=== PATIENT | female | born 1950 | race Caucasian/White ===

== ENCOUNTER 2021-09-17 00:34 | Inpatient (IN) ==
--- NOTE | 2021-09-17 01:31 | History & Physical Report ---
Date of Service September 17, 2021 Assessment & Plan (1) Bloody stools: Plan: Iona Calhonu is a 71-year-old female with past medical history of diabetes with neuropathy, hyperlipidemia, arthritis who was transferred from [facility] due to GI bleed. Acute GI bleed Patient does report bright red blood per rectum, but does describe some stools that seem darker and she was unable to necessarily describe color As such, unclear whether this is purely a lower GI bleed or if there is potential upper GI involvement Will transfuse 2 units PRBCs due to sudden symptomatic anemia Protonix 40 mg IV twice daily ordered in case of upper GI bleed Patient does have history of hemorrhoids, which could potentially be source of bleeding consult general surgery for evaluation and potential intervention Consult GI Hold aspirin, NSAIDs Admit to telemetry Diabetes with neuropathy Hold home regimen Basal and SSI while admitted Continue home duloxetine and gabapentin Chronic musculoskeletal pain Hold home ibuprofen, meloxicam Can continue Voltaren gel as needed DVT prophylaxis: SCDs, chemoprophylaxis contraindicated in the setting of GI bleed Diet: N.p.o. pending further eval Dispo: Telemetry CODE STATUS: Full (2) Diabetes: (3) Diabetic neuropathy: Plan: Pt seen/examined in conjunction with resident MD Pereira. Orders and plan of admission formulated with resident. 71 y/o F Hx HLD, DM II. She was in the ER the prior day with c/o BRBPR and rectal pain. She was only borderline anemic at the time. A CT abdomen demonstrated proctitis only and she was DCd from the ER in stable condition. She continued to have mild BRBPR. The pt had a L TKR recently and is undergoing rehab. She was with her therapist when she passed out while in the bathroom. She passed a large amount of blood. Her therapist alerted EMS. She was taken to [facility] and then transferred to [facility] as they do not have staffing. She is stable and fully oriented on admission, however, her Hb has decreased form 11.9 to 9. O/E General: AAO x 3, no distress ENT: No erythema or exudates, no thrush Eyes: ALEXANDER, EOMI Head and neck: Normocephalic, atraumatic, No JVD, neck is supple. Chest/heart: Nontender, S1,2, RRR, no murmurs, no gallops Lungs: CTAB, no wheezing or crackles Abdomen: Nontender, nondistended, BS+ Neuro: AAO x 3, speech is clear, no unilateral weakness or loss of sensation, coordination intact Musculoskeletal: No joint inflammation, muscle tenderness, FROM Skin: No acute rashes or ulcers Extremities: No clubbing, cyanosis, edema A/P 1) Acute GI bleed - unclear source as the amount of bleeding seems severe for proctitis or hemorrhoids. We will consult GI. She will remain NPO in the interim. We will transfuse 2 units and trend her Hb. A PPi was provided as the MD at [facility] stated that she had dark, melanotic stool while there. 2) DM - sliding scale 3) HLD - cont statin Total time for this admission including review of labs, meds, imaging, records, discussion with pt and ER attending - 37 min Admission and Anticipated Discharge Date Admission Date: September 17, 2021 History of Present Illness Primary Care Provider: NO PCP Iona Calhoun is a 71-year-old female with past medical history of diabetes with neuropathy, hyperlipidemia, arthritis who was transferred from [facility] due to GI bleed. Patient was in our emergency room on 09/15/2021 for similar complaints. At that time, she had CT abdomen/pelvis showing mild thickening of the rectal wall which is nonspecific, clinical correlation for proctitis recommended. Otherwise no acute abnormality seen. Diverticulosis without evidence of diverticulitis. Hemoglobin was 11.9. At that time she was hemodynamically stable and did not exhibit signs of symptomatic anemia such as dizziness, fatigue, loss of consciousness. She was discharged home and instructed to decrease her aspirin and NSAID use and follow-up with PCP. Patient reports that earlier on 09/16/2021 she did notice more bright red bloody stools and had a significant amount of blood per rectum. Reports she was at home accompanied by her home physical therapist. She felt that she needed to use the bathroom and asked a physical therapist for help, as she recently had left knee replacement. When the physical therapist helped the patient up, she "passed out" as soon as she entered the bathroom and had to be helped down to the ground by the physical therapist. She denies hitting her head, but does say that she lost consciousness for several seconds. At that time, the patient's home physical therapist called EMS and she was transported to [facility] as this was the closest medical facility. At outside hospital, the patient's hemoglobin was found to be 9.2. She was consented for blood transfusion and a unit of PRBCs was started. However, at that time decision was made to transfer her here for specialized care. As such, patient did not receive full unit PRBCs. At this time, patient denies headache, dizziness, nausea, vomiting, fever, chills, chest pain, palpitations, shortness of breath, weakness, numbness. Allergies Allergy/AdvReac Type Severity Reaction Status Date / Time lorazepam [From Ativan] AdvReac Intermediate MAKES HER Verified 09/16/21 07:23 FEEL "WEIRD IN THE HEAD" zolpidem [From Ambien] AdvReac Intermediate MAKES HER Verified 09/16/21 07:23 FEEL "WEIRD IN THE HEAD" Home Medications Medication Instructions Recorded Confirmed Type aspirin 81 mg tablet,delayed 81 mg PO DAILY 09/15/21 09/15/21 History release canagliflozin 300 mg tablet 300 mg PO DAILY 09/15/21 09/15/21 History (Invokana) diclofenac sodium 1 % topical gel 2 g TOPICAL QID PRN 09/15/21 09/15/21 History duloxetine 60 mg capsule,delayed 60 mg PO DAILY 09/15/21 09/15/21 History release gabapentin 600 mg tablet 600 mg PO HS 09/15/21 09/15/21 History ibuprofen 200 mg tablet (Motrin IB) 400 mg PO Q6H PRN 09/15/21 09/15/21 History insulin aspart U-100 100 unit/mL 0 unit SUBCUT AC 09/15/21 09/15/21 History (3 mL) subcutaneous pen (Novolog Flexpen U-100 Insulin aspart) insulin detemir U-100 100 unit/mL 0 unit SUBCUT BID 09/15/21 09/15/21 History (3 mL) subcutaneous pen (Levemir FlexTouch U-100 Insulin) meloxicam 15 mg tablet 15 mg PO DAILY PRN 09/15/21 09/15/21 History ondansetron HCl 4 mg tablet 4 mg PO Q8H PRN 09/15/21 09/15/21 History pravastatin 40 mg tablet 40 mg PO HS 09/15/21 09/15/21 History Past Med/Surg History Social History (System 09/16/21 @ 07:23 by Cristina Carvalho) Smoking Status: Never smoker Hx Alcohol Use: No Hx Substance Use: No Preferred Language: [place] Communication Ability: Effective Edge Stripper Required: No Beliefs That Will Affect Care: None Current Living Situation: Spouse Current Living Situation Comment: is out of town a lot-he is a truck and transport mechanic Feels Safe at Home: Yes Safety Concerns: Feels Safe At This Time Assistive Devices: Glasses Review of Systems Review of Systems: Per HPI Physical Exam Physical Exam: GENERAL: A&Ox3. NAD. HEENT: PERRL, EOMI. Moist mucous membranes. NECK: No JVD. No lymphadenopathy. CHEST/LUNGS: CTAB A/P. No crackles, wheezes, rales, rhonchi. HEART: RRR. No m/g/r. No carotid bruits. ABDOMEN: NT/ND, soft. BS+ x4 EXTREMITIES: No cyanosis, no clubbing, no edema SKIN: Warm and dry. No rashes or lesions. PSYCHIATRIC: Euthymic affect, no SI, no pressured speech, no hallucinations NEUROLOGIC: No FND. CN II-XII grossly intact. Resident Activity Tracking Resident Involvement: Resident Care Provided Care Provided: Adult Hospital Medicine
[2021-09-17] MEDS ORDERED: ONDANSETRON INJ 2 MG/ML 2 ML VIAL IV PRN (01:48)
[2021-09-17] MEDS ORDERED: SODIUM CHLORIDE 0.9% 250 ML IV PRN (01:53)
[2021-09-17 02:26] LABS: Hematocrit (blood only) 27.8 % (37-47); Hemoglobin 9.1 g/dL (12.0-16.0)
[2021-09-17] MEDS ORDERED: GLUCOSE 10 TAB/TUBE PO PRN (02:58)
[2021-09-17] MEDS ORDERED: GLUCAGON FOR INJ 1 MG VIAL SQ PRN (02:58)
[2021-09-17] MEDS ORDERED: DC ALL PREVIOUSLY ORDERED DIABETES MEDS ONE (02:58)
[2021-09-17] MEDS ORDERED: CARBOHYDRATES FOR HYPOGLYCEMIA PO PRN (02:58)
[2021-09-17] MEDS ORDERED: GLUCOSE 40% GEL 15 GM TUBE PO PRN (02:58)
[2021-09-17] MEDS ORDERED: DEXTROSE 50% 50 ML SYRINGE IV PRN (02:58)
[2021-09-17] MEDS: SODIUM CHLORIDE 0.9% 1000ML 1,000 ML IV SCH ×2 (03:00→18:13)
[2021-09-17] MEDS ORDERED: ONDANSETRON 4 MG OD TAB PO PRN (03:12)
[2021-09-17] MEDS: INSULIN ASPART PER UNIT SC SCH ×4 (06:17→20:53)
--- NOTE | 2021-09-17 07:29 | Hospitalist Progress Note ---
Date of Service September 17, 2021 Assessment & Plan (1) Bloody stools: Plan: Iona Calhoun is a 71-year-old female with past medical history of diabetes with neuropathy, hyperlipidemia, arthritis who was transferred from [facility] due to GI bleed. Acute GI bleed Patient does report bright red blood per rectum, but does describe some stools that seem darker and she was unable to necessarily describe color As such, unclear whether this is purely a lower GI bleed or if there is potential upper GI involvement PRBCs x2 units transfused overnight due to sudden symptomatic anemia. Hemoglobin remained stable at 9.4, despite 2 units transfused at 9.1. Protonix 40 mg IV twice daily ordered in case of upper GI bleed General surgery aware of patient, ready to intervene should potential intervention be warranted -Consult GI: Agree with holding aspirin, NSAIDs, IV PPI twice daily. Plan for colonoscopy on outpatient basis, should patient remained stable without further symptoms. If otherwise, likely expedited inpatient colonoscopy. * IV Protonix 40 mg twice daily * Holding aspirin, NSAIDs. * Diet advance to clear liquids * Serial H&H labs until 10 PM * Morning CBC, BMP Diabetes with neuropathy -Held home regimen * Hyperglycemia consult. Basal and SSI while admitted * Continue home duloxetine and gabapentin Chronic musculoskeletal pain * Hold home ibuprofen, meloxicam * Can continue Voltaren gel as needed DVT prophylaxis: SCDs Diet: Liquid diet Dispo: Telemetry CODE STATUS: Full (2) Diabetes: (3) Diabetic neuropathy: Admission and Anticipated Discharge Date Admission Date: September 17, 2021 Supervising Physician Co-Signing Physician Notes Resident Physician Supervision Note: I independently interviewed and examined the patient and verified the white history and physical, reviewed labs and image studies and agree with resident Dr. Stewart findings and care plan. Subjective Patient is awake and alert in bed this morning. She is able to corroborate admission HPI. At present, she reports generalized weakness and fatigue. She also reports longstanding pain in her knee. Otherwise, she denies dizziness, chest pain, shortness of breath, vomiting, or abdominal pain. Review of Systems Review of Systems: All systems reviewed & are unremarkable except as noted in HPI & below Physical Exam Physical Exam: General: Well-appearing, alert, interactive, and in no acute distress. HEENT: Normocephalic, atraumatic. EOM intact. Good conjugate gaze. Nares patent. Moist mucosal membranes. Neck: Supple. No lymphadenopathy. Normal ROM. CV: Regular rate and rhythm. Normal S1 and S2. No murmurs gallops or rubs. No pedal edema. Respiratory: Normal respiratory effort. Lungs clear to auscultation bilaterally. No crackles, rhonchi, or wheezes. Abdomen: Soft, nondistended abdomen. No bruits heard on auscultation. No tenderness to deep palpation. No guarding or rebound. Extremities: Normal tone and ROM. Strength and sensation intact. Capillary refill <2 sec. 2+ dp equal bilaterally. Skin: Intact, without rashes, lesions, or erythema. Results & Data Results & Data ([facility]) Vital Signs (Past 12 Hours) Vital Signs Temp Pulse Pulse Resp BP BP BP 09/17/21 07:01 36.7 C 84 18 112/63 09/17/21 06:14 37 C 89 15 102/61 09/17/21 04:50 37.2 C 92 H 18 113/64 09/17/21 04:20 36.9 C 95 H 18 134/63 09/17/21 04:05 97 H 18 112/55 L 09/17/21 03:45 37.1 C 100 H 16 127/72 09/17/21 03:04 36.5 C 96 H 18 137/73 09/17/21 00:39 37.0 C 94 H 18 102/68 Pulse Ox 09/17/21 07:01 92 09/17/21 06:14 94 09/17/21 04:50 95 09/17/21 04:20 94 09/17/21 04:05 94 09/17/21 03:45 94 09/17/21 03:04 99 09/17/21 00:39 97 Resident Activity Tracking Resident Involvement: Resident Care Provided Care Provided: Adult Hospital Medicine
[2021-09-17 07:51] LABS: Hematocrit (blood only) 27.9 % (37-47); Hemoglobin 9.2 g/dL (12.0-16.0)
[2021-09-17] MEDS: PANTOprazole 40 MG in SYRINGE 0 ML IV SCH ×2 (08:09→20:21)
[2021-09-17] MEDS: LANTUS PER UNIT CHARGE SQ SCH ×2 (08:09→20:52)
[2021-09-17] MEDS: DULoxetine HCL 60 MG CAP PO SCH (08:09)
[2021-09-17] MEDS: ACETAMINOPHEN 325 MG TAB PO PRN ×2 (09:58→19:57)
--- NOTE | 2021-09-17 10:17 | Gastrointestinal Consultation ---
Date of Consultation September 17, 2021 Assessment & Plan (1) Rectal bleed: Patient painless rectal bleeding after having had significant constipation with evidence of proctitis/colitis on imaging. Differential diagnosis for this would include infectious etiologies, stercoral proctitis, no evidence of any ongoing acute GI bleeding. Hemodynamically stable. I would hold meloxicam if possible, no signs of upper GI bleed. Okay to advance diet to liquids Will discuss timing of colonoscopy based upon clinical presentation, assuming patient stays stable without further symptoms, this can be completed as an expedited outpatient otherwise will evaluate for inpatient colonoscopy. BID PPI orally Hold NSAIDs Please call with any questions or concerns or change in status. History of Present Illness Reason for Consultation: Rectal Bleeding Attending Physician: April Conway MD History of Present Illness This is a 71 y/o F Hx HLD, DM II. She presented to ER here at [facility] the prior day with c/o BRBPR and rectal pain. A CT abdomen demonstrated proctitis only and she was DCd from the ER in stable condition. She continued to have mild BRBPR. The pt had a L TKR recently earlier this month and is undergoing rehab. She has had significant constipation with necessity of disimpaction since the surgery followed by diarrhea, and then this episode of bleeding. She was with her therapist when she felt lightheaded while in the bathroom. She passed a large amount of blood. Her therapist alerted EMS. She was taken t [facility] and then transferred to [facility] No BM's since ones at home. Upon presentation here she has remained HD stable, no GI output. Hb stable this morn at 9.2 (drawn prior to transfusion). Upon entering room, she is on phone with daughter in law, she states she feels quite well and is not having any ongoing symptoms. CT 09/15 CT abd pelvis IV con only CLINICAL HISTORY: rectal bleeding TECHNIQUE: Helical axial images of the abdomen and pelvis were obtained and displayed. Automated dose lowering techniques and/or adjustment according to patient size were utilized for this exam. This exam was performed with intravenous contrast. CT DOSE: 839.53 mGycm COMPARISON: None available at the time of this dictation. FINDINGS: Lower chest: Bibasilar atelectasis versus scarring is seen. Liver: Unremarkable. No focal lesions are seen. Gallbladder and biliary tree: The gallbladder is distended appearance of there is no evidence of wall thickening. The common bile duct measures 7 mm, within normal limits for age. Pancreas: Unremarkable, no focal lesions. Spleen: Splenule is incidentally noted. Adrenals: Unremarkable. Kidneys and ureters: Subcentimeter hypodensities are too small to characterize. Bladder: Unremarkable. Reproductive organs: Unremarkable. Bowel: Diverticulosis is seen without evidence of diverticulitis. The appendix is normal. There is appearance of thickening of the lower rectal wall. No definite drainable abscess is seen within the limits of CT imaging. Lymph nodes Retroperitoneal: Unremarkable. Mesenteric: Unremarkable. Pelvic: Unremarkable. Peritoneum: Normal. Vessels: Atherosclerotic calcifications are seen. Abdominal wall: Mild skin thickening and edema in the lower abdomen bilaterally, nonspecific. Bones: Degenerative changes in the visualized spine. IMPRESSION: 1. There is mild thickening of the rectal wall which is nonspecific, clinical correlation for proctitis is recommended. Otherwise no acute abnormalities are seen. 2. Diverticulosis without evidence of diverticulitis. Allergies Allergy/AdvReac Type Severity Reaction Status Date / Time lorazepam [From Ativan] AdvReac Intermediate MAKES HER Verified 09/16/21 07:23 FEEL "WEIRD IN THE HEAD" zolpidem [From Ambien] AdvReac Intermediate MAKES HER Verified 09/16/21 07:23 FEEL "WEIRD IN THE HEAD" Home Medications Medication Instructions Recorded Confirmed Type aspirin 81 mg tablet,delayed 81 mg PO DAILY 09/15/21 09/15/21 History release canagliflozin 300 mg tablet 300 mg PO DAILY 09/15/21 09/15/21 History (Invokana) diclofenac sodium 1 % topical gel 2 g TOPICAL QID PRN 09/15/21 09/15/21 History duloxetine 60 mg capsule,delayed 60 mg PO DAILY 09/15/21 09/15/21 History release gabapentin 600 mg tablet 600 mg PO HS 09/15/21 09/15/21 History ibuprofen 200 mg tablet (Motrin IB) 400 mg PO Q6H PRN 09/15/21 09/15/21 History insulin aspart U-100 100 unit/mL 0 unit SUBCUT AC 09/15/21 09/15/21 History (3 mL) subcutaneous pen (Novolog Flexpen U-100 Insulin aspart) insulin detemir U-100 100 unit/mL 0 unit SUBCUT BID 09/15/21 09/15/21 History (3 mL) subcutaneous pen (Levemir FlexTouch U-100 Insulin) meloxicam 15 mg tablet 15 mg PO DAILY PRN 09/15/21 09/15/21 History ondansetron HCl 4 mg tablet 4 mg PO Q8H PRN 09/15/21 09/15/21 History pravastatin 40 mg tablet 40 mg PO HS 09/15/21 09/15/21 History Patient History Social History Smoking Status: Never smoker Hx Alcohol Use: No Hx Substance Use: No Preferred Language: Greek Communication Ability: Effective Deoiling Machine Operator Required: No Beliefs That Will Affect Care: None Current Living Situation: Spouse Current Living Situation Comment: is out of town a lot-he is a truck terminal manager Feels Safe at Home: Yes Safety Concerns: Feels Safe At This Time Assistive Devices: Glasses Review of Systems Review of Systems: 10 system negative except for HPI Physical Exam Physical Exam: GENERAL: A&Ox3. NAD. HEENT: PERRL, EOMI. Moist mucous membranes. NECK: No JVD. No lymphadenopathy. CHEST/LUNGS: CTAB A/P. No crackles, wheezes, rales, rhonchi. HEART: RRR. No m/g/r. No carotid bruits. ABDOMEN: NT/ND, soft. BS+ x4 EXTREMITIES: No cyanosis, no clubbing, no edema SKIN: Warm and dry. No rashes or lesions. PSYCHIATRIC: Euthymic affect, no SI, no pressured speech, no hallucinations NEUROLOGIC: No FND. CN II-XII grossly intact. Results & Data ([facility]) Vital Signs (Past 12 Hours) Vital Signs Temp Pulse Pulse Resp BP BP BP 09/17/21 09:52 37.5 C 83 18 107/61 09/17/21 09:37 37.3 C 85 18 102/58 L 09/17/21 09:08 36.8 C 85 18 102/59 L 09/17/21 07:01 36.7 C 84 18 112/63 09/17/21 06:45 89 09/17/21 06:14 37 C 89 15 102/61 09/17/21 04:50 37.2 C 92 H 18 113/64 09/17/21 04:20 36.9 C 95 H 18 134/63 09/17/21 04:05 97 H 18 112/55 L 09/17/21 03:45 37.1 C 100 H 16 127/72 09/17/21 03:04 36.5 C 96 H 18 137/73 09/17/21 00:39 37.0 C 94 H 18 102/68 Pulse Ox 09/17/21 09:52 95 09/17/21 09:37 95 09/17/21 09:08 92 09/17/21 07:01 92 09/17/21 06:45 09/17/21 06:14 94 09/17/21 04:50 95 09/17/21 04:20 94 09/17/21 04:05 94 09/17/21 03:45 94 09/17/21 03:04 99 09/17/21 00:39 97
[2021-09-17 13:10] LABS: Hematocrit (blood only) 27.8 % (37-47); Hemoglobin 9.1 g/dL (12.0-16.0)
[2021-09-17 14:51] LABS: Hematocrit (blood only) 28.6 % (37-47); Hemoglobin 9.4 g/dL (12.0-16.0)
[2021-09-17] MEDS: DICLOFENAC SOD 1% GEL 100 GM TUBE EXT PRN ×2 (17:29→20:26)
[2021-09-17 19:29] LABS: Hematocrit (blood only) 28.5 % (37-47); Hemoglobin 9.2 g/dL (12.0-16.0)
[2021-09-17] MEDS: GABAPENTIN 600 MG TAB PO SCH (20:21)
[2021-09-17] MEDS: PRAVASTATIN SOD 40 MG TAB PO SCH (20:22)
[2021-09-17 22:47] LABS: Hematocrit (blood only) 27.8 % (37-47); Hemoglobin 9.2 g/dL (12.0-16.0)
[2021-09-18] MEDS: SODIUM CHLORIDE 0.9% 1000ML 1,000 ML IV SCH (04:16)
[2021-09-18] MEDS ORDERED: Nursing to Pharmacy Communication SCH (07:30)
--- NOTE | 2021-09-18 07:37 | Discharge Summary ---
Date of Service September 18, 2021 Admission HPI Per Admitting Provider Iona Calhoun is a 71-year-old female with past medical history of diabetes with neuropathy, hyperlipidemia, arthritis who was transferred from [facility] due to GI bleed. Patient was in our emergency room on 09/15/2021 for similar complaints. At that time, she had CT abdomen/pelvis showing mild thickening of the rectal wall which is nonspecific, clinical correlation for proctitis recommended. Otherwise no acute abnormality seen. Diverticulosis without evidence of diverticulitis. Hemoglobin was 11.9. At that time she was hemodynamically stable and did not exhibit signs of symptomatic anemia such as dizziness, fatigue, loss of consciousness. She was discharged home and instructed to decrease her aspirin and NSAID use and follow-up with PCP. Patient reports that earlier on 09/16/2021 she did notice more bright red bloody stools and had a significant amount of blood per rectum. Reports she was at home accompanied by her home physical therapist. She felt that she needed to use the bathroom and asked a physical therapist for help, as she recently had left knee replacement. When the physical therapist helped the patient up, she "passed out" as soon as she entered the bathroom and had to be helped down to the ground by the physical therapist. She denies hitting her head, but does say that she lost consciousness for several seconds. At that time, the patient's home physical therapist called EMS and she was transported to [facility] as this was the closest medical facility. At outside hospital, the patient's hemoglobin was found to be 9.2. She was consented for blood transfusion and a unit of PRBCs was started. However, at that time decision was made to transfer her here for specialized care. As such, patient did not receive full unit PRBCs. At this time, patient denies headache, dizziness, nausea, vomiting, fever, chills, chest pain, palpitations, shortness of breath, weakness, numbness. Discharge Data Allergies Allergy/AdvReac Type Severity Reaction Status Date / Time lorazepam [From Ativan] AdvReac Intermediate MAKES HER Verified 09/16/21 07:23 FEEL "WEIRD IN THE HEAD" zolpidem [From Ambien] AdvReac Intermediate MAKES HER Verified 09/16/21 07:23 FEEL "WEIRD IN THE HEAD" Consultations 09/17/21 01:48 Consult Gastroenterology Routine Hospital Course (1) Bloody stools: Iona Calhoun is a 71-year-old female with past medical history of diabetes with neuropathy, hyperlipidemia, arthritis who was transferred from [facility] due to GI bleed. Acute GI bleed Patient does report bright red blood per rectum, but does describe some stools that seem darker and she was unable to necessarily describe color As such, unclear whether this is purely a lower GI bleed or if there is pote ntial upper GI involvement PRBCs x2 units transfused overnight due to sudden symptomatic anemia. Hemoglobin remained stable at 9.4, despite 2 units transfused at 9.1. Protonix 40 mg IV twice daily ordered in case of upper GI bleed General surgery aware of patient, ready to intervene should potential intervention be warranted -Consult GI: Agree with holding aspirin, NSAIDs, IV PPI twice daily. Plan for colonoscopy on outpatient basis, should patient remained stable without further symptoms. If otherwise, likely expedited inpatient colonoscopy. * IV Protonix 40 mg twice daily * Holding aspirin, NSAIDs. * Diet advance to clear liquids * Serial H&H labs until 10 PM * Morning CBC, BMP Diabetes with neuropathy -Held home regimen * Hyperglycemia consult. Basal and SSI while admitted * Continue home duloxetine and gabapentin Chronic musculoskeletal pain * Hold home ibuprofen, meloxicam * Can continue Voltaren gel as needed DVT prophylaxis: SCDs Diet: Liquid diet Dispo: Telemetry CODE STATUS: Full Discharge Plan Discharge Items Reason For Visit: GI BLEED Follow-up/Referrals: PCP,NO [Primary Care Provider] - Medications and DC Order Prescriptions: No Action gabapentin 600 mg tablet 600 mg PO HS RF: 0 pravastatin 40 mg tablet 40 mg PO HS RF: 0 meloxicam 15 mg tablet 15 mg PO DAILY PRN (Reason: Pain) RF: 0 ondansetron HCl 4 mg tablet 4 mg PO Q8H PRN (Reason: NAUSEA/VOMITING) RF: 0 aspirin 81 mg tablet,delayed release (DR/EC) 81 mg PO DAILY RF: 0 ibuprofen [Motrin IB] 200 mg Tablet 400 mg PO Q6H PRN (Reason: Pain) RF: 0 insulin aspart U-100 [Novolog Flexpen U-100 Insulin] 100 unit/mL (3 mL) insulin pen 0 unit SUBCUT AC RF: 0 duloxetine 60 mg capsule,delayed release(DR/EC) 60 mg PO DAILY RF: 0 Levemir FlexTouch U-100 Insuln 100 unit/mL (3 mL) insulin pen 0 unit SUBCUT BID RF: 0 diclofenac sodium [Voltaren] 1 % Gel 2 g TOPICAL QID PRN (Reason: Pain) RF: 0 Invokana 300 mg tablet 300 mg PO DAILY RF: 0 Admission Data Admit Date/Time: 09/17/21 00:50 Attending Provider: April Conway Admit Provider: Denys Pereira Primary Care Provider: PCP,NO Other Providers: Winston Abebe ; Ahsan Roberts
[2021-09-18 07:56] LABS: Basophils # (auto) 0.02 K/uL (0-0.2); Basophils % (auto) 0.2 %; Eosinophils # (auto) 0.45 K/uL (0-0.5); Eosinophils % (auto) 5.5 %; Hematocrit (blood only) 30.3 % (37-47); Hemoglobin 9.7 g/dL (12.0-16.0); Immature Granulocytes % (auto) 1.2 %; Lymphocytes # (auto) 1.81 K/uL (1.2-3.4); Lymphocytes % (auto) 22.2 %; Mean Corpuscular Hemoglobin 27.3 pg (25-34); Mean Corpuscular Volume 85.4 fL (80-100); Mean Platelet Volume 9.5 fL (7.4-10.4); Monocytes % (auto) 7.4 %; Neutrophils # (auto) 5.16 K/uL (1.4-6.5); Neutrophils % (auto) 63.5 %; Platelet Count 199 K/uL (130-400); RDW Coefficient of Variation 15.5 % (11.5-14.5); Red Blood Count 3.55 M/uL (4.2-5.4); White Blood Count 8.14 K/uL (4.8-10.8)
[2021-09-18 08:11] LABS: BUN Creatinine Ratio 20.8 (10-20); Creatinine Clr Calc Pharmacy 99.6 ml/min; Est GFR (African American) 113.6 ml/min; Potassium 3.9 mmol/L (3.5-5.1)
[2021-09-18] MEDS: INSULIN ASPART PER UNIT SC SCH ×4 (08:39→20:36)
[2021-09-18] MEDS: LANTUS PER UNIT CHARGE SQ SCH ×2 (09:08→20:36)
[2021-09-18] MEDS: DULoxetine HCL 60 MG CAP PO SCH (09:09)
[2021-09-18] MEDS: PANTOprazole 40 MG in SYRINGE 0 ML IV SCH (09:10)
--- NOTE | 2021-09-18 12:13 | Gastroenterology Progress Note ---
Date of Service September 18, 2021 Assessment & Plan (1) Rectal bleed: Plan: Patient painless rectal bleeding after having had significant constipation with evidence of proctitis/colitis on imaging. Differential diagnosis for this would include infectious etiologies, stercoral proctitis, no evidence of any ongoing acute GI bleeding. Hemodynamically stable. I would hold meloxicam if possible, no signs of upper GI bleed. Okay to advance diet to liquids Would arrange for colonoscopy in 4 to 6 weeks as an outpatient. Avoid constipation mainly daily MiraLAX of 1 scoop BID PPI orally Hold NSAIDs Please call with any questions or concerns or change in status. Admission and Anticipated Discharge Date Admission Date: September 17, 2021 Subjective Patient feels well, having no pain, no further brown bowel movement today. Physical Exam Physical Exam: GENERAL: A&Ox3. NAD. HEENT: PERRL, EOMI. Moist mucous membranes. NECK: No JVD. No lymphadenopathy. CHEST/LUNGS: CTAB A/P. No crackles, wheezes, rales, rhonchi. HEART: RRR. No m/g/r. No carotid bruits. ABDOMEN: NT/ND, soft. BS+ x4 EXTREMITIES: No cyanosis, no clubbing, no edema SKIN: Warm and dry. No rashes or lesions. PSYCHIATRIC: Euthymic affect, no SI, no pressured speech, no hallucinations NEUROLOGIC: No FND. CN II-XII grossly intact. Results & Data ([facility]) Vital Signs (Past 12 Hours) Vital Signs Temp Pulse Pulse Pulse Resp BP BP 09/18/21 11:15 37.0 C 83 18 117/66 09/18/21 07:42 85 09/18/21 07:41 36.9 C 82 19 120/70 09/18/21 03:43 36.7 C 78 16 122/63 Pulse Ox 09/18/21 11:15 96 09/18/21 07:42 09/18/21 07:41 96 09/18/21 03:43 95
--- NOTE | 2021-09-18 14:01 | Hospitalist Progress Note ---
Date of Service September 18, 2021 Assessment & Plan (1) Bloody stools: Plan: Iona Calhoun is a 71-year-old female with past medical history of diabetes with neuropathy, hyperlipidemia, arthritis who was transferred from [facility] due to GI bleed. Acute GI bleed Patient does report bright red blood per rectum, but does describe some stools that seem darker and she was unable to necessarily describe color PRBCs x2 on admission. Hemoglobin remained stable at 9.4, despite 2 units transfused at 9.1. Hemoglobin 9.7 this morning. Protonix now p.o. twice daily. GI: Agree with holding aspirin, NSAIDs, PPI twice daily. GI scheduling patient for colonoscopy outpatient in 4 to 6 weeks. * Advancing diet to carb consistent * Starting on daily MiraLAX * Follow morning CBC Diabetes with neuropathy -Held home regimen * Hyperglycemia consult. Basal and SSI while admitted * Continue home duloxetine and gabapentin Chronic musculoskeletal pain * Hold home ibuprofen, meloxicam * Can continue Voltaren gel as needed DVT prophylaxis: SCDs Diet: Carb consistent Dispo: Telemetry. case management working on short-term [facility] options. CODE STATUS: Full (2) Diabetes: (3) Diabetic neuropathy: Admission and Anticipated Discharge Date Admission Date: September 17, 2021 Supervising Physician Co-Signing Physician Notes Resident Physician Supervision Note: I independently interviewed and examined the patient and verified the white history and physical, reviewed labs and image studies and agree with resident Dr. Stewart findings and care plan. Subjective Patient is awake in bed this morning. She reports having a bowel movement this morning, which was nonbloody. She has no acute concerns. However, she is understandably nervous about the prospect of going home alone and having the same thing happen to her. When discussing this, she becomes tearful. She mentions that her , who would ordinarily be with her, is stuck in [place]-he drives a truck. Review of Systems Review of Systems: All systems reviewed & are unremarkable except as noted in HPI & below Physical Exam Physical Exam: General: Well-appearing, alert, interactive, and in no acute distress. HEENT: Normocephalic, atraumatic. EOM intact. Good conjugate gaze. Nares patent. Moist mucosal membranes. Neck: Supple. No lymphadenopathy. Normal ROM. CV: Regular rate and rhythm. Normal S1 and S2. No murmurs gallops or rubs. No pedal edema. Respiratory: Normal respiratory effort. Lungs clear to auscultation bilaterally. No crackles, rhonchi, or wheezes. Abdomen: Soft, nondistended abdomen. No bruits heard on auscultation. No tenderness to deep palpation. No guarding or rebound. Extremities: Normal tone and ROM. Strength and sensation intact. Capillary refill <2 sec. 2+ dp equal bilaterally. Skin: Intact, without rashes, lesions, or erythema. Results & Data Results & Data ([facility]) Vital Signs (Past 12 Hours) Vital Signs Temp Pulse Pulse Pulse Resp BP BP 09/18/21 11:15 37.0 C 83 18 117/66 09/18/21 07:42 85 09/18/21 07:41 36.9 C 82 19 120/70 09/18/21 03:43 36.7 C 78 16 122/63 Pulse Ox 09/18/21 11:15 96 09/18/21 07:42 09/18/21 07:41 96 09/18/21 03:43 95 Resident Activity Tracking Resident Involvement: Resident Care Provided Care Provided: Adult Hospital Medicine
[2021-09-18] MEDS: DICLOFENAC SOD 1% GEL 100 GM TUBE EXT PRN (19:17)
[2021-09-18] MEDS: ACETAMINOPHEN 325 MG TAB PO PRN (20:12)
[2021-09-18] MEDS: PRAVASTATIN SOD 40 MG TAB PO SCH (20:13)
[2021-09-18] MEDS: PANTOprazole 40 MG TAB PO SCH (20:13)
[2021-09-18] MEDS: GABAPENTIN 600 MG TAB PO SCH (20:13)
--- NOTE | 2021-09-19 06:55 | Hospitalist Progress Note ---
Date of Service September 19, 2021 Assessment & Plan (1) Bloody stools: Plan: Iona Calhoun is a 71-year-old female with past medical history of diabetes with neuropathy, hyperlipidemia, arthritis who was transferred from [facility] due to GI bleed. Acute GI bleed Upon admission patient reported bright red blood per rectum, but does describe some stools that seem darker and she was unable to necessarily describe color PRBCs x2 on admission. Hemoglobin remained stable at 9.4, despite 2 units transfused at 9.1. Hemoglobin 9.7 on 09/18. Protonix now p.o. twice daily. GI: Agree with holding aspirin, NSAIDs, PPI twice daily. GI scheduling patient for colonoscopy outpatient in 4 to 6 weeks. -Advancing diet to carb consistent -Started on daily MiraLAX -Follow morning CBC Diabetes with neuropathy -Held home regimen -Hyperglycemia consult. Basal and SSI while admitted -Continue home duloxetine and gabapentin Chronic musculoskeletal pain -Hold home ibuprofen, meloxicam -Can continue Voltaren gel as needed DVT prophylaxis: SCDs Diet: Carb consistent Dispo: Med/Surg. case management working on short-term [facility] options. CODE STATUS: Full (2) Diabetes: (3) Diabetic neuropathy: Admission and Anticipated Discharge Date Admission Date: September 17, 2021 Supervising Physician Co-Signing Physician Notes I personally examined the patient and verified all white points of history and exam, discussed case, and agree with decision making with Dr Wilson No further rectal bleeding. Feels good. Just scared about going home alone given that she was having syncope. Vitals noted, in general she is awake and alert pleasant no distress. HEENT normocephalic atraumatic mucous membranes moist. Breathing unlabored no accessory muscle use good effort. Skin shows no rashes no pallor or icterus. Neuro without focal deficits. Rectal bleeding/acute blood loss anemiaanemia is now stable for days, no further bleeding for days, vitals are stableonce she has a safe living situation, stable for home. Otherwise as above Subjective Patient seen at the bedside today sitting in her chair by the bed. She does not have any complaints of nausea, vomiting, fevers, chills, abdominal pain. She had a bowel movement earlier in the morning and said that she did not have much issue with it and did not notice any blood. Review of Systems Constitutional: as per Subjective / HPI Physical Exam Constitutional: WD/WN, vitals as above Eyes: PERRL, conjunctivae normal, anicteric sclerae Respiratory: normal respiratory effort, lungs clear to auscultation Cardiovascular: RRR, no murmur, no edema Gastrointestinal (Abdomen): normal bowel sounds, soft, nontender, no hepatosplenomegaly Psychiatric: A+Ox3, euthymic affect Results & Data Results & Data ([facility]) Vital Signs (Past 12 Hours) Vital Signs Temp Pulse Pulse Resp BP BP Pulse Ox 09/19/21 03:42 36.6 C 76 16 96/56 L 98 09/18/21 22:49 101 H 09/18/21 22:48 37.0 C 88 17 122/72 98 09/18/21 19:36 36.3 C L 86 18 105/60 95 Resident Activity Tracking Resident Involvement: Resident Care Provided Care Provided: Adult Hospital Medicine
[2021-09-19] MEDS: INSULIN ASPART PER UNIT SC SCH ×4 (07:39→20:59)
[2021-09-19] MEDS: DULoxetine HCL 60 MG CAP PO SCH (08:23)
[2021-09-19] MEDS: PANTOprazole 40 MG TAB PO SCH ×2 (08:23→21:11)
[2021-09-19] MEDS: POLYETHYLENE (MIRALAX) 17 GM PACK PO SCH (08:25)
[2021-09-19] MEDS: LANTUS PER UNIT CHARGE SQ SCH ×2 (08:42→21:00)
--- NOTE | 2021-09-19 13:14 | Gastroenterology Progress Note ---
Date of Service September 19, 2021 Assessment & Plan (1) Rectal bleed: Plan: Patient painless rectal bleeding after having had significant constipation with evidence of proctitis/colitis on imaging. Differential diagnosis for this would include infectious etiologies, But most likelystercoral proctitis, no evidence of any ongoing acute GI bleeding. Hemodynamically stable. I would hold meloxicam if possible, no signs of upper GI bleed. Okay to advance diet to liquids Would arrange for colonoscopy in 4 to 6 weeks as an outpatient. Avoid constipation mainly daily MiraLAX of 1 scoop BID PPI orally Hold NSAIDs GI will sign off Please call with any questions or concerns or change in status. Admission and Anticipated Discharge Date Admission Date: September 17, 2021 Subjective no signs GI output concern for bleeding, small brown stool. Physical Exam Physical Exam: General: Well-appearing, alert, interactive, and in no acute distress. HEENT: Normocephalic, atraumatic. EOM intact. Good conjugate gaze. Nares patent. Moist mucosal membranes. Neck: Supple. No lymphadenopathy. Normal ROM. CV: Regular rate and rhythm. Normal S1 and S2. No murmurs gallops or rubs. No pedal edema. Respiratory: Normal respiratory effort. Lungs clear to auscultation bilaterally. No crackles, rhonchi, or wheezes. Abdomen: Soft, nondistended abdomen. No bruits heard on auscultation. No tenderness to deep palpation. No guarding or rebound. Extremities: Normal tone and ROM. Strength and sensation intact. Capillary refill <2 sec. 2+ dp equal bilaterally. Skin: Intact, without rashes, lesions, or erythema. Results & Data ([facility]) Vital Signs (Past 12 Hours) Vital Signs Temp Pulse Pulse Resp BP BP Pulse Ox 09/19/21 11:15 36.9 C 90 18 114/49 L 96 09/19/21 07:34 36.9 C 83 18 128/80 96 09/19/21 07:01 77 09/19/21 03:42 36.6 C 76 16 96/56 L 98
--- NOTE | 2021-09-19 17:36 | Billing Data ---
Date of Service September 19, 2021 Coding Level of Care Code 56009 Subseq Hosp Care Lvl 2
[2021-09-19] MEDS: ACETAMINOPHEN 325 MG TAB PO PRN (21:08)
[2021-09-19] MEDS: DICLOFENAC SOD 1% GEL 100 GM TUBE EXT PRN (21:10)
[2021-09-19] MEDS: GABAPENTIN 600 MG TAB PO SCH (21:10)
[2021-09-19] MEDS: PRAVASTATIN SOD 40 MG TAB PO SCH (21:10)
[2021-09-20] MEDS: PANTOprazole 40 MG TAB PO SCH (07:33)
[2021-09-20] MEDS: DULoxetine HCL 60 MG CAP PO SCH (07:33)
[2021-09-20] MEDS: POLYETHYLENE (MIRALAX) 17 GM PACK PO SCH (07:36)
[2021-09-20] MEDS: INSULIN ASPART PER UNIT SC SCH ×2 (08:27→12:45)
[2021-09-20] MEDS: LANTUS PER UNIT CHARGE SQ SCH (08:28)
--- NOTE | 2021-09-20 19:02 | Discharge Summary ---
Date of Service September 20, 2021 Principal Diagnosis Lower GI bleed Discharge Exam In general she is awake and alert pleasant no distress. HEENT normocephalic atraumatic mucous membranes moist. Breathing unlabored no accessory muscle use good effort. Skin shows no rashes no pallor or icterus. Neuro without focal deficits. Discharge Data Allergies Allergy/AdvReac Type Severity Reaction Status Date / Time lorazepam [From Ativan] AdvReac Intermediate MAKES HER Verified 09/16/21 07:23 FEEL "WEIRD IN THE HEAD" zolpidem [From Ambien] AdvReac Intermediate MAKES HER Verified 09/16/21 07:23 FEEL "WEIRD IN THE HEAD" Consultations 09/17/21 01:48 Consult Gastroenterology Routine Hospital Course (1) Bloody stools: Iona Calhoun is a 71-year-old female with past medical history of diabetes with neuropathy, hyperlipidemia, arthritis who was transferred from [facility] due to GI bleed. Acute GI bleed with acute blood loss anemia requiring 2 units of packed red cells transfusion Upon admission patient reported bright red blood per rectum, but does describe some stools that seem darker and she was unable to necessarily describe color PRBCs x2 on admission. Hemoglobin remained stable at 9.4, despite 2 units transfused at 9.1. Hemoglobin 9.7 on 09/18. GI: Agree with holding aspirin, NSAIDs, PPI twice daily. GI scheduling patient for colonoscopy outpatient in 4 to 6 weeks. -Differential being stercoral colitis (discussed MiraLAX), versus diverticular bleed versus AVM versus internal hemorrhoid versus polyp versus other. Given that bleeding has been stable/resolved for several dayssafe for home. Chronic musculoskeletal pain -Hold home ibuprofen, meloxicam -Can continue Voltaren gel as needed DVT prophylaxis: SCDs Diet: Carb consistent Dispo: Safe for dischargeset up at basically what amounts to a personal care level so that she has extra assistance while she recovers. Total Time Total Time Spent Total Time Spent (In Minutes): Less than 30 Discharge Plan Discharge Items Patient Disposition: Personal Intermediate Reason For Visit: GI BLEED Discharge Diagnosis: Lower GI Bleed Condition on Discharge: Good Activity: Per Instructions section Non-emergency contact: Primary Care Provider and Commissary Representative Call non-emergency contact if: your symptoms worsen, your pain is worsening and your temperature is above 101 Follow-up/Referrals: PCP,NO [Primary Care Provider] - Diet: Regular Addtl Attending Provider Instructions: A discharge summary will be sent to your primary care physician to ensure continuity of care. You came to the hospital after an episode of syncope (passing out). When you came into the emergency department you were found to have a drop in your hemoglobin (blood counts) and due to your symptomatic nature you were transfused 2 units of blood. Over the course of your hospital stay your blood count and vital signs remained stable and you were no longer symptomatic. The gastrointestinal doctor examined you as well and determined your bleed is most likely coming from your lower intestine and given that things have stabilized they are able to take a look at the lower intestine with a colonoscopy in the outpatient setting. They recommended seeing you outpatient for the colonoscopy in about 4-6 weeks. They also recommended to take Miralax 1 scoop daily for constipation and to take a medication called a proton pump inhibitor to help decrease irritation from stomach acid. Please also be mindful to not take ibuprofen or meloxicam for pain for the time being - Tylenol is an acceptable alternative. Follow-up: * You should be seen by your primary physician within the next week. * You should follow up with gastroenterology for a colonoscopy in 4-6 weeks. Medications: Your medication list has been reviewed and reconciled upon discharge to ensure accuracy and continuity of care. An updated list of all your medications is included with your hospital discharge paperwork. Please review this list closely, and make note of any changes. * Please take Miralax 1 scoop per day for constipation. * Please take pantoprazole 40mg twice a day. Take your medications as instructed; do not skip a dose of your medicines. Make sure all of your doctors know every medicine you are taking (including [id number] medicines, vitamins, and supplements). let your primary care provider know before taking any new medicines because some of these may interact with your current medications, or may make your symptoms worse. CONTACT YOUR PRIMARY CARE PROVIDER if you experience any of the following: * Fevers or shaking chills * Shortness of breath not relieved by inhalers, fainting * Sudden abdominal distension not relieved by catheterization. * Difficulty following your treatment plan, or difficulty taking medications CALL 911 OR GO TO THE EMERGENCY DEPARTMENT if you experience any of the following: * Sudden, severe abdominal pain or nausea/vomiting * Severe chest pain, or chest pain that radiates (moves) to your jaw or arm * Sudden, severe shortness of breath or difficulty breathing It was was our pleasure taking care of you here at [facility] . Thank you for allowing us to participate in your care. Pending Studies at Discharge: No Stand-Alone Forms: My [facility] [employer], Smoking Cessation Skilled Items Patient informed of condition?: Yes DNR: No Discharge Level of Care: Other Communicable Disease: No Discharge Prognosis: Stable Lines: None Urinary Catheter: No Medications and DC Order Prescriptions: New polyethylene glycol 3350 [Miralax] 17 gram Powder In Packet 17 g PO DAILY Qty: 30 RF: 0 pantoprazole 40 mg tablet,delayed release (DR/EC) 40 mg PO BID 14 Days Qty: 28 RF: 0 pantoprazole 40 mg tablet,delayed release (DR/EC) 40 mg PO BID 30 Days Qty: 60 RF: 0 polyethylene glycol 3350 [Miralax] 17 gram/dose powder 17 g PO DAILY Qty: 510 RF: 0 Continued gabapentin 600 mg tablet 600 mg PO HS RF: 0 pravastatin 40 mg tablet 40 mg PO HS RF: 0 ondansetron HCl 4 mg tablet 4 mg PO Q8H PRN (Reason: NAUSEA/VOMITING) RF: 0 aspirin 81 mg tablet,delayed release (DR/EC) 81 mg PO DAILY RF: 0 insulin aspart U-100 [Novolog Flexpen U-100 Insulin] 100 unit/mL (3 mL) insulin pen 0 unit SUBCUT AC RF: 0 duloxetine 60 mg capsule,delayed release(DR/EC) 60 mg PO DAILY RF: 0 Levemir FlexTouch U-100 Insuln 100 unit/mL (3 mL) insulin pen 0 unit SUBCUT BID RF: 0 diclofenac sodium 1 % Gel 2 g TOPICAL QID PRN (Reason: Pain) RF: 0 Invokana 300 mg tablet 300 mg PO DAILY RF: 0 Discontinued meloxicam 15 mg tablet 15 mg PO DAILY PRN (Reason: Pain) RF: 0 ibuprofen [Motrin IB] 200 mg Tablet 400 mg PO Q6H PRN (Reason: Pain) RF: 0 Discharge Orders: Discharge Order (Routine); Ordered 09/20/21 Ordered By: Shi Díaz Admission Data Admit Date/Time: 09/17/21 00:50 Attending Provider: Hasmukh Rowland Admit Provider: Denys Pereira Primary Care Provider: PCP,NO Other Providers: Ahsan Roberts ; April Conway ; Uri Wilson ; Winston Abebe Other Interventions: Discharge Summary Assessment (RN) Last Done: 09/20/21 12:16 Coding Level of Care Code D/C DAY MANAGEMENT <30 MINS Diagnoses Bloody stools K92.1
== END 2021-09-20 15:25 | disposition home or self-care (01) | DRG 378 ==
LOC: SUATTDRO 00:50 → 2S 00:50 → 3W 09-19 17:19